=== PATIENT | male | born 1940 | race Caucasian/White ===

== ENCOUNTER 2020-12-27 09:20 | Inpatient (IN) | payer MEDICARE, OTHER ==
[2020-12-27 10:02] LABS: #Eosinphils 0.1 10x3/uL (0.0-0.5); #Monocytes 0.7 10x3/uL (0.0-1.1); #Neutrophils 11.9 10x3/uL (1.5-8.4); %Basophils 0.2 % (0.0-2.0); %Eosinophils 0.6 % (0.0-6.0); %Lymphocytes 5.3 % (18.0-47.0); %Monocytes 4.9 % (0.0-10.0); Hemoglobin 7.7 g/dL (13.5-17.5); Mean Corpuscular HGB CONC 29.8 g/dL (32.0-36.0); Mean Corpuscular Hemoglobin 22.8 pg (27.0-33.0); Mean Corpuscular Volume 76.3 fl (81.2-95.1); Mean Platelet Volume 9.7 fl (7.4-10.4); Platelet Count 324 10x3/uL (150-450); Red Blood Cell (RBC) Count 3.38 10x6/uL (4.32-5.72); White Blood Cell (WBC) Count 13.5 10x3/uL (3.5-10.5)
[2020-12-27 10:13] LABS: ALT (SGPT) 20 U/L (8-55); AST (SGOT) 14 U/L (5-34); Albumin 3.7 g/dL (3.4-4.8); Alkaline Phosphatase 102 U/L (40-110); Anion Gap 17 mmol/L (10-20); BUN (Urea Nitrogen) 39 mg/dL (8.4-25.7); Bilirubin, Total 0.6 mg/dL (0.2-1.2); Calc. Creatinine Clearance 0 mL/min (70-130); Calcium 8.6 mg/dL (7.8-10.44); Carbon Dioxide 21 mmol/L (23-31); Chloride 105 mmol/L (98-107); Glucose 218 mg/dL (83-110); Potassium 4.2 mmol/L (3.5-5.1); Protein, Total 6.7 g/dL (5.8-8.1); Sodium 139 mmol/L (136-145)
[2020-12-27] MEDS ORDERED: Furosemide 40 MG/4 ML VIAL ONE (10:51)
[2020-12-27 11:53] LABS: Hypochromia SLIGHT = 6-15 cells (100X) (0-5/hpf); Ovalocytes SLIGHT = 2-5 cells (100X) (0-1/hpf); Platelet Morphology Comment Appears Adequate
[2020-12-27] MEDS ORDERED: Senokot S 8.6-50 MG TAB PO PRN (16:11)
[2020-12-27] MEDS ORDERED: Acetaminophen 325 MG TAB PO PRN (16:11)
[2020-12-27] MEDS ORDERED: Ondansetron PF 4 MG/2 ML Vial IVP PRN (16:11)
[2020-12-27] MEDS ORDERED: Dextrose 5% in Water 1,000 ML IV PRN (16:23)
[2020-12-27] MEDS ORDERED: HumaLOG 300 UNITS/3 ML VIAL SC PRN (16:23)
[2020-12-27 17:03] LABS: Iron 16 ug/dL (65-175); Iron Binding Capacity, Total 484 mcg/dL (261-462)
[2020-12-27] MEDS ORDERED: Ipratropium Bromide 2.5 ml Neb NEB SCH (18:00)
[2020-12-27] MEDS: Simvastatin 10 MG TAB PO SCH (20:47)
[2020-12-27] MEDS: HumuLIN 70/30 (300 UNITS/3 ML VIAL) SC SCH (20:47)
[2020-12-27] MEDS ORDERED: Apixaban 2.5 MG TAB PO SCH (21:00)
[2020-12-28 01:16] LABS: SARS-CoV-2 PCR by NAA Not Detected (NotDetected)
[2020-12-28] MEDS: Ipratropium Bromide 2.5 ml Neb NEB SCH ×5 (03:10→19:51)
[2020-12-28] MEDS: Levothyroxine Sodium 25 MCG TAB PO SCH (05:02)
[2020-12-28 05:25] LABS: #Eosinphils 0.1 10x3/uL (0.0-0.5); #Monocytes 0.6 10x3/uL (0.0-1.1); #Neutrophils 9.3 10x3/uL (1.5-8.4); %Basophils 0.4 % (0.0-2.0); %Eosinophils 0.9 % (0.0-6.0); %Lymphocytes 6.6 % (18.0-47.0); %Monocytes 5.2 % (0.0-10.0); %Neutrophils 86.3 % (40.0-75.0); Hemoglobin 7.9 g/dL (13.5-17.5); Mean Corpuscular HGB CONC 30.7 g/dL (32.0-36.0); Mean Corpuscular Hemoglobin 23.4 pg (27.0-33.0); Mean Corpuscular Volume 76.3 fl (81.2-95.1); Mean Platelet Volume 9.5 fl (7.4-10.4); Platelet Count 283 10x3/uL (150-450); RBC Distribution Width 18.2 % (11.5-14.5); Red Blood Cell (RBC) Count 3.37 10x6/uL (4.32-5.72); White Blood Cell (WBC) Count 10.8 10x3/uL (3.5-10.5)
[2020-12-28 05:41] LABS: Anion Gap 14 mmol/L (10-20); BUN (Urea Nitrogen) 36 mg/dL (8.4-25.7); Calc. Creatinine Clearance 47 mL/min (70-130); Calcium 8.6 mg/dL (7.8-10.44); Carbon Dioxide 22 mmol/L (23-31); Chloride 106 mmol/L (98-107); Magnesium 1.9 mg/dL (1.6-2.6); Potassium 3.7 mmol/L (3.5-5.1); Sodium 138 mmol/L (136-145)
[2020-12-28 05:53] LABS: Glucose 49 mg/dL (83-110)
[2020-12-28] MEDS: Dextrose 50% Abboject 50 ML SYRINGE SLOW IVP PRN ×2 (05:59→16:39)
[2020-12-28] MEDS ORDERED: Furosemide 40 MG/4 ML VIAL SLOW IVP SCH (06:00)
[2020-12-28] MEDS ORDERED: Glimepiride 4 MG TAB PO SCH (07:30)
[2020-12-28] MEDS: Cholecalciferol 1,000 UNITS (25 MCG) TAB PO SCH (08:46)
[2020-12-28] MEDS: HumuLIN 70/30 (300 UNITS/3 ML VIAL) SC SCH ×2 (08:46→20:10)
[2020-12-28] MEDS: Losartan 25 MG TAB PO SCH (08:46)
[2020-12-28] MEDS ORDERED: Aspirin Chewable 81 MG TAB PO SCH (09:00)
[2020-12-28] MEDS ORDERED: Aspirin 81 mg Enteric Coated Tablet PO SCH (09:00)
[2020-12-28] MEDS: Simvastatin 10 MG TAB PO SCH (20:10)
[2020-12-28] MEDS ORDERED: GoLYTELY 4,000 ml Bottle PO SCH (22:00)
[2020-12-29] MEDS: Ipratropium Bromide 2.5 ml Neb NEB SCH ×3 (02:58→19:15)
[2020-12-29] MEDS: Dextrose 50% Abboject 50 ML SYRINGE SLOW IVP PRN ×2 (03:49→10:13)
[2020-12-29] MEDS: Losartan 25 MG TAB PO SCH (05:10)
[2020-12-29] MEDS: Levothyroxine Sodium 25 MCG TAB PO SCH (05:10)
[2020-12-29] MEDS: Cholecalciferol 1,000 UNITS (25 MCG) TAB PO SCH (05:10)
[2020-12-29] MEDS: HumuLIN 70/30 (300 UNITS/3 ML VIAL) SC SCH ×2 (05:13→20:31)
[2020-12-29] MEDS: Furosemide 40 MG TAB PO SCH (05:13)
[2020-12-29 05:20] LABS: #Eosinphils 0.1 10x3/uL (0.0-0.5); #Monocytes 0.6 10x3/uL (0.0-1.1); #Neutrophils 8.7 10x3/uL (1.5-8.4); %Basophils 0.4 % (0.0-2.0); %Eosinophils 1.3 % (0.0-6.0); %Monocytes 5.8 % (0.0-10.0); %Neutrophils 84.8 % (40.0-75.0); Hemoglobin 8.8 g/dL (13.5-17.5); Mean Corpuscular HGB CONC 30.7 g/dL (32.0-36.0); Mean Corpuscular Hemoglobin 23.7 pg (27.0-33.0); Mean Corpuscular Volume 77.4 fl (81.2-95.1); Mean Platelet Volume 9.3 fl (7.4-10.4); Platelet Count 260 10x3/uL (150-450); RBC Distribution Width 18.2 % (11.5-14.5); Red Blood Cell (RBC) Count 3.71 10x6/uL (4.32-5.72); White Blood Cell (WBC) Count 10.3 10x3/uL (3.5-10.5)
[2020-12-29 05:33] LABS: Anion Gap 13 mmol/L (10-20); BUN (Urea Nitrogen) 28 mg/dL (8.4-25.7); Calc. Creatinine Clearance 43 mL/min (70-130); Calcium 8.8 mg/dL (7.8-10.44); Carbon Dioxide 28 mmol/L (23-31); Chloride 102 mmol/L (98-107); Glucose 115 mg/dL (83-110); Potassium 3.9 mmol/L (3.5-5.1); Sodium 139 mmol/L (136-145); Troponin I Less than 0.010 ng/mL (< 0.028)
[2020-12-29 07:07] VITALS: BMI 32.2
[2020-12-29] MEDS ORDERED: Dextrose 50% Abboject 50 ML SYRINGE ONE (10:10)
[2020-12-29] MEDS ORDERED: PROPOFOL 40 ML ONE (12:57)
[2020-12-29] MEDS ORDERED: Midazolam HCl 2 mg/2 ml Vial ONE (12:57)
[2020-12-29] MEDS ORDERED: PHENYLEPHRINE-NS 100 MCG/ML 10 ML SYRINGE ONE (13:19)
[2020-12-29] MEDS ORDERED: ePHEDrine 50 MG/ML VIAL ONE (13:29)
[2020-12-29] MEDS ORDERED: Glycopyrrolate 0.2 MG/ML 5 ML SYRINGE ONE (13:49)
[2020-12-29] MEDS: Simvastatin 10 MG TAB PO SCH (20:30)
[2020-12-30] MEDS: Ipratropium Bromide 2.5 ml Neb NEB SCH ×4 (01:45→20:21)
[2020-12-30 04:54] LABS: Anion Gap 13 mmol/L (10-20); BUN (Urea Nitrogen) 20 mg/dL (8.4-25.7); Calc. Creatinine Clearance 48 mL/min (70-130); Calcium 9.3 mg/dL (7.8-10.44); Carbon Dioxide 28 mmol/L (23-31); Chloride 103 mmol/L (98-107); Glucose 67 mg/dL (83-110); Potassium 4.4 mmol/L (3.5-5.1); Sodium 140 mmol/L (136-145)
[2020-12-30] MEDS: Levothyroxine Sodium 25 MCG TAB PO SCH (05:57)
[2020-12-30] MEDS: Furosemide 40 MG TAB PO SCH (08:15)
[2020-12-30] MEDS: Aspirin 81 mg Enteric Coated Tablet PO SCH (08:15)
[2020-12-30] MEDS: Losartan 25 MG TAB PO SCH (08:15)
[2020-12-30] MEDS: HumuLIN 70/30 (300 UNITS/3 ML VIAL) SC SCH ×2 (08:15→20:58)
[2020-12-30] MEDS: Cholecalciferol 1,000 UNITS (25 MCG) TAB PO SCH (08:15)
[2020-12-30 08:39] LABS: Anion Gap 12 mmol/L (10-20); BUN (Urea Nitrogen) 20 mg/dL (8.4-25.7); Calc. Creatinine Clearance 49 mL/min (70-130); Calcium 8.9 mg/dL (7.8-10.44); Carbon Dioxide 27 mmol/L (23-31); Chloride 104 mmol/L (98-107); Glucose 90 mg/dL (83-110); Potassium 4.3 mmol/L (3.5-5.1); Sodium 139 mmol/L (136-145)
[2020-12-30 09:10] LABS: #Eosinphils 0.2 10x3/uL (0.0-0.5); #Monocytes 0.5 10x3/uL (0.0-1.1); #Neutrophils 6.8 10x3/uL (1.5-8.4); %Basophils 0.3 % (0.0-2.0); %Eosinophils 2.8 % (0.0-6.0); %Lymphocytes 11.7 % (18.0-47.0); %Monocytes 5.9 % (0.0-10.0); Hemoglobin 8.5 g/dL (13.5-17.5); Mean Corpuscular Hemoglobin 23.9 pg (27.0-33.0); Mean Corpuscular Volume 79.5 fl (81.2-95.1); Mean Platelet Volume 9.3 fl (7.4-10.4); Platelet Count 247 10x3/uL (150-450); RBC Distribution Width 18.7 % (11.5-14.5); Red Blood Cell (RBC) Count 3.56 10x6/uL (4.32-5.72); White Blood Cell (WBC) Count 8.6 10x3/uL (3.5-10.5)
[2020-12-30] MEDS: Simvastatin 10 MG TAB PO SCH (20:59)
[2020-12-31] MEDS: Ipratropium Bromide 2.5 ml Neb NEB SCH ×2 (01:34→07:46)
[2020-12-31] MEDS: Levothyroxine Sodium 25 MCG TAB PO SCH (05:37)
[2020-12-31 05:56] LABS: Anion Gap 13 mmol/L (10-20); BUN (Urea Nitrogen) 23 mg/dL (8.4-25.7); Calc. Creatinine Clearance 43 mL/min (70-130); Calcium 8.6 mg/dL (7.8-10.44); Carbon Dioxide 26 mmol/L (23-31); Chloride 104 mmol/L (98-107); Glucose 117 mg/dL (83-110); Potassium 3.9 mmol/L (3.5-5.1); Sodium 139 mmol/L (136-145)
[2020-12-31 08:26] VITALS: BP 123/76; TEMP 97.7
[2020-12-31] MEDS: Cholecalciferol 1,000 UNITS (25 MCG) TAB PO SCH (09:06)
[2020-12-31] MEDS: Aspirin 81 mg Enteric Coated Tablet PO SCH (09:06)
[2020-12-31] MEDS: Furosemide 40 MG TAB PO SCH (09:06)
[2020-12-31] MEDS: Losartan 25 MG TAB PO SCH (09:07)
[2020-12-31] MEDS: HumuLIN 70/30 (300 UNITS/3 ML VIAL) SC SCH (11:41)
== END 2020-12-31 11:41 | disposition home or self-care (01) | DRG 813 ==
LOC: CSHERS 09:20 → CSHTELE 13:31
PROVIDERS: ADMIT Internal Medicine; ATTEND Physician Assistant
PROC: 30233N1 Transfusion of Nonautologous Red Blood Cells into Peripheral Vein, Percutaneous Approach (ICD-10-PCS; principal; 2020-12-27)
PROC: 0DB98ZZ Excision of Duodenum, Via Natural or Artificial Opening Endoscopic (ICD-10-PCS; 2020-12-29)
PROC: 0DB68ZZ Excision of Stomach, Via Natural or Artificial Opening Endoscopic (ICD-10-PCS; 2020-12-29)
PROC: 0DBK8ZZ Excision of Ascending Colon, Via Natural or Artificial Opening Endoscopic (ICD-10-PCS; 2020-12-29)
PROC: 0DBL8ZZ Excision of Transverse Colon, Via Natural or Artificial Opening Endoscopic (ICD-10-PCS; 2020-12-29)
PROC: 0DBN8ZZ Excision of Sigmoid Colon, Via Natural or Artificial Opening Endoscopic (ICD-10-PCS; 2020-12-29)
PROC: 0DBM8ZZ Excision of Descending Colon, Via Natural or Artificial Opening Endoscopic (ICD-10-PCS; 2020-12-29)
PROC: 0DBH8ZZ Excision of Cecum, Via Natural or Artificial Opening Endoscopic (ICD-10-PCS; 2020-12-29)
PROC: 0W3P8ZZ Control Bleeding in Gastrointestinal Tract, Via Natural or Artificial Opening Endoscopic (ICD-10-PCS; 2020-12-29)
DX: D68.32 Hemorrhagic disorder due to extrinsic circulating anticoagulants (principal); I50.31 Acute diastolic (congestive) heart failure; I13.0 Hypertensive heart and chronic kidney disease with heart failure and stage 1 through stage 4 chronic kidney disease, or unspecified chronic kidney disease; I48.19 Other persistent atrial fibrillation; K92.2 Gastrointestinal hemorrhage, unspecified; D50.9 Iron deficiency anemia, unspecified; Z20.822 Contact with and (suspected) exposure to COVID-19; N18.30 Chronic kidney disease, stage 3 unspecified; E11.22 Type 2 diabetes mellitus with diabetic chronic kidney disease; K21.9 Gastro-esophageal reflux disease without esophagitis; J44.9 Chronic obstructive pulmonary disease, unspecified; I25.10 Atherosclerotic heart disease of native coronary artery without angina pectoris; E11.51 Type 2 diabetes mellitus with diabetic peripheral angiopathy without gangrene; I65.22 Occlusion and stenosis of left carotid artery; E55.9 Vitamin D deficiency, unspecified; K64.4 Residual hemorrhoidal skin tags; K57.30 Diverticulosis of large intestine without perforation or abscess without bleeding; K64.8 Other hemorrhoids; T45.515A Adverse effect of anticoagulants, initial encounter; K63.5 Polyp of colon; E11.649 Type 2 diabetes mellitus with hypoglycemia without coma; T38.3X5A Adverse effect of insulin and oral hypoglycemic [antidiabetic] drugs, initial encounter; Y92.230 Patient room in hospital as the place of occurrence of the external cause; G31.84 Mild cognitive impairment of uncertain or unknown etiology; E03.9 Hypothyroidism, unspecified; Z79.01 Long term (current) use of anticoagulants; Z79.82 Long term (current) use of aspirin; Z95.5 Presence of coronary angioplasty implant and graft; Z87.891 Personal history of nicotine dependence; Z79.890 Hormone replacement therapy; Z79.4 Long term (current) use of insulin; Z79.899 Other long term (current) drug therapy
CPT/HCPCS: 36415; 36416; 36430; 71045; 80048; 80053; 82274; 83540; 83550; 83735; 83880; 84443; 84484; 85025; 86850; 86900; 86901; 87635; 88305; 93005; 93010; 93306; 94640; 96374; J1815; J1940; J2250; J2704; J3490; J7620; P9016; U0003; U0005

== ENCOUNTER 2022-05-11 10:30 | Inpatient (IN) | payer MEDICARE ==
[2022-05-11] MEDS ORDERED: Furosemide 40 MG/4 ML VIAL ONE (11:21)
[2022-05-11 11:27] LABS: #Basophils 0.1 10x3/uL (0.0-0.2); #Eosinphils 0.2 10x3/uL (0.0-0.5); #Monocytes 0.6 10x3/uL (0.0-1.1); #Neutrophils 4.6 10x3/uL (1.5-8.4); %Eosinophils 3.2 % (0.0-6.0); %Lymphocytes 23.9 % (18.0-47.0); %Monocytes 8.4 % (0.0-10.0); %Neutrophils 63.1 % (40.0-75.0); Hemoglobin 10.6 g/dL (13.5-17.5); Mean Corpuscular HGB CONC 30.9 g/dL (32.0-36.0); Mean Corpuscular Hemoglobin 25.4 pg (27.0-33.0); Mean Corpuscular Volume 82.3 fl (81.2-95.1); Mean Platelet Volume 9.8 fl (7.4-10.4); Platelet Count 301 10x3/uL (150-450); RBC Distribution Width 16.5 % (11.5-14.5); Red Blood Cell (RBC) Count 4.17 10x6/uL (4.32-5.72); White Blood Cell (WBC) Count 7.2 10x3/uL (3.5-10.5)
[2022-05-11 11:30] LABS: INR-International Normal Ratio 1.1; PTT 33.8 sec (22.0-33.0); Prothrombin Time 11.9 sec (9.5-12.1)
[2022-05-11 11:42] LABS: ALT (SGPT) 10 U/L (8-55); AST (SGOT) 22 U/L (5-34); Alkaline Phosphatase 127 U/L (40-110); Anion Gap 14 mmol/L (10-20); BUN (Urea Nitrogen) 21 mg/dL (8.4-25.7); Bilirubin, Total 1.1 mg/dL (0.2-1.2); Calc. Creatinine Clearance 0 mL/min (70-130); Calcium 8.9 mg/dL (7.8-10.44); Carbon Dioxide 23 mmol/L (23-31); Chloride 111 mmol/L (98-107); Estimated GFR 49; Globulin 3.4 g/dL (2.4-3.5); Glucose 124 mg/dL (83-110); Potassium 4.4 mmol/L (3.5-5.1); Protein, Total 7.4 g/dL (5.8-8.1); Sodium 144 mmol/L (136-145)
[2022-05-11] MEDS ORDERED: methylPREDNISolone Sod Succ/PF 125 MG/2 ML VIAL ONE (13:04)
[2022-05-11] MEDS ORDERED: Furosemide 20 MG/2 ML VIAL SLOW IVP SCH (16:45)
[2022-05-11] MEDS ORDERED: Acetaminophen 325 MG TAB PO PRN (16:45)
[2022-05-11] MEDS ORDERED: Ondansetron ODT 4 MG TAB PO PRN (16:45)
[2022-05-11] MEDS ORDERED: Dextrose 5% in Water 1,000 ML IV PRN (16:48)
[2022-05-11] MEDS ORDERED: HumaLOG 300 UNITS/3 ML VIAL SC PRN (16:48)
[2022-05-11] MEDS ORDERED: Dextrose 50% Abboject 50 ML SYRINGE SLOW IVP PRN (16:48)
[2022-05-11 17:19] VITALS: BMI 31.2
[2022-05-11 21:14] LABS: SARS-CoV-2 NAA Rapid Test Not Detected (NotDetected)
[2022-05-11] MEDS: methylPREDNISolone Sod Succ 40 MG VIAL IVP SCH (23:09)
[2022-05-12 01:40] LABS: Bilirubin Neg (Negative); Blood, Urine 25 (Negative); Clarity Clear (Clear); Glucose, Urine (Dipstick) 100 mg/dL (Negative); Ketone, Urine Negative (Negative); Leukocyte Negative (Negative); Nitrite Negative (Negative); Protein, Urine (Dipstick) Negative (Neg-Trace); Urobilinogen Normal mg/dL (Less than 2)
[2022-05-12 01:41] LABS: Urine Culture Reflex No No
[2022-05-12 01:44] LABS: Bacteria/HPF None Seen HPF (None Seen); RBC/HPF 0-3 HPF (0-3); Squamous Epithelial 0-3 HPF (0-3); WBC/HPF None Seen HPF (0-3)
[2022-05-12] MEDS: methylPREDNISolone Sod Succ 40 MG VIAL IVP SCH (05:23)
[2022-05-12 05:28] LABS: Anion Gap 19 mmol/L (10-20); BUN (Urea Nitrogen) 29 mg/dL (8.4-25.7); Calc. Creatinine Clearance 34 mL/min (70-130); Carbon Dioxide 22 mmol/L (23-31); Chloride 105 mmol/L (98-107); Estimated GFR 33; Glucose 265 mg/dL (83-110); Potassium 4.1 mmol/L (3.5-5.1); Sodium 142 mmol/L (136-145)
[2022-05-12 05:30] LABS: #Monocytes 0.2 10x3/uL (0.0-1.1); #Neutrophils 6.5 10x3/uL (1.5-8.4); %Basophils 0.1 % (0.0-2.0); %Lymphocytes 3.3 % (18.0-47.0); %Monocytes 2.4 % (0.0-10.0); %Neutrophils 93.6 % (40.0-75.0); Mean Corpuscular HGB CONC 30.7 g/dL (32.0-36.0); Mean Corpuscular Hemoglobin 24.7 pg (27.0-33.0); Mean Corpuscular Volume 80.5 fl (81.2-95.1); Mean Platelet Volume 9.8 fl (7.4-10.4); Platelet Count 287 10x3/uL (150-450); RBC Distribution Width 16.5 % (11.5-14.5); Red Blood Cell (RBC) Count 4.05 10x6/uL (4.32-5.72)
[2022-05-12] MEDS ORDERED: Furosemide 40 MG/4 ML VIAL SLOW IVP SCH (06:00)
[2022-05-12] MEDS: HumaLOG 300 UNITS/3 ML VIAL SC PRN ×3 (06:53→13:45)
[2022-05-12] MEDS ORDERED: Mometasone/Formoterol 200/5 60 PUFF INH SCH (08:45)
[2022-05-12] MEDS ORDERED: Non-Formulary Medication 1 EACH (Omeprazole [Omeprazole] 20 MG Capsule.Dr) PO SCH (09:00)
[2022-05-12] MEDS ORDERED: Enoxaparin Sodium 40 MG/0.4 ML SYRINGE SC SCH (09:00)
[2022-05-12] MEDS: Levothyroxine Sodium 25 MCG TAB PO SCH (09:09)
[2022-05-12] MEDS: Aspirin 81 mg Enteric Coated Tablet PO SCH (09:10)
[2022-05-12] MEDS: Glimepiride 4 MG TAB PO SCH ×2 (09:10→20:14)
[2022-05-12] MEDS: HumuLIN 70/30 (300 UNITS/3 ML VIAL) SC SCH ×2 (09:15→20:14)
[2022-05-12] MEDS ORDERED: Ipratropium Bromide 2.5 ml Neb NEB SCH (13:00)
[2022-05-12 15:06] LABS: Hemoglobin A1c 7.2 % (4.0-6.0)
[2022-05-12] MEDS: Mometasone/Formoterol 200/5 60 PUFF INH SCH (19:25)
[2022-05-12] MEDS: Simvastatin 10 MG TAB PO SCH (20:14)
[2022-05-13 05:10] LABS: #Monocytes 1.2 10x3/uL (0.0-1.1); #Neutrophils 14.1 10x3/uL (1.5-8.4); %Basophils 0.1 % (0.0-2.0); %Monocytes 7.6 % (0.0-10.0); %Neutrophils 87.4 % (40.0-75.0); Hemoglobin 9.6 g/dL (13.5-17.5); Mean Corpuscular HGB CONC 30.3 g/dL (32.0-36.0); Mean Corpuscular Hemoglobin 24.7 pg (27.0-33.0); Mean Corpuscular Volume 81.7 fl (81.2-95.1); Mean Platelet Volume 9.9 fl (7.4-10.4); Platelet Count 337 10x3/uL (150-450); RBC Distribution Width 16.6 % (11.5-14.5); Red Blood Cell (RBC) Count 3.88 10x6/uL (4.32-5.72); White Blood Cell (WBC) Count 16.1 10x3/uL (3.5-10.5)
[2022-05-13 05:23] LABS: ALT (SGPT) 9 U/L (8-55); AST (SGOT) 16 U/L (5-34); Albumin 3.7 g/dL (3.4-4.8); Alkaline Phosphatase 93 U/L (40-110); Anion Gap 16 mmol/L (10-20); BUN (Urea Nitrogen) 45 mg/dL (8.4-25.7); Bilirubin, Direct 0.5 mg/dL (0.1-0.3); Bilirubin, Total 0.8 mg/dL (0.2-1.2); Calc. Creatinine Clearance 36 mL/min (70-130); Calcium 8.9 mg/dL (7.8-10.44); Carbon Dioxide 26 mmol/L (23-31); Chloride 105 mmol/L (98-107); Estimated GFR 35; Glucose 60 mg/dL (83-110); Magnesium 1.7 mg/dL (1.6-2.6); Potassium 3.8 mmol/L (3.5-5.1); Sodium 143 mmol/L (136-145)
[2022-05-13 05:55] LABS: Cardiac Risk 4.9 (Less than 4.5); Cholesterol 97 mg/dl (< 200 Desired); HDL Cholesterol 20 mg/dL (>60 Neg Risk); LDL Cholesterol, Calculated 64 mg/dL; Triglycerides 64 mg/dL (Less than 150)
[2022-05-13] MEDS ORDERED: Magnesium 2 GM/50 ML(in water) 2 GM in Premix Bag 1 BAG IVPB SCH (06:30)
[2022-05-13] MEDS: Mometasone/Formoterol 200/5 60 PUFF INH SCH ×2 (06:55→19:55)
[2022-05-13] MEDS: Levothyroxine Sodium 25 MCG TAB PO SCH (08:16)
[2022-05-13] MEDS: Aspirin 81 mg Enteric Coated Tablet PO SCH (08:16)
[2022-05-13] MEDS: Furosemide 40 MG TAB PO SCH (08:17)
[2022-05-13] MEDS: predniSONE 50 MG TAB PO SCH (08:25)
[2022-05-13] MEDS ORDERED: Enoxaparin Sodium 30 MG/0.3 ML SYRINGE SC SCH (09:00)
[2022-05-13] MEDS: Simvastatin 10 MG TAB PO SCH (22:42)
[2022-05-14 05:06] LABS: #Monocytes 0.8 10x3/uL (0.0-1.1); #Neutrophils 9.7 10x3/uL (1.5-8.4); %Basophils 0.1 % (0.0-2.0); %Lymphocytes 4.5 % (18.0-47.0); %Monocytes 7.6 % (0.0-10.0); %Neutrophils 87.1 % (40.0-75.0); Hemoglobin 9.8 g/dL (13.5-17.5); Mean Corpuscular Hemoglobin 25.1 pg (27.0-33.0); Mean Platelet Volume 10.3 fl (7.4-10.4); Platelet Count 302 10x3/uL (150-450); RBC Distribution Width 16.6 % (11.5-14.5); White Blood Cell (WBC) Count 11.1 10x3/uL (3.5-10.5)
[2022-05-14 05:27] LABS: Anion Gap 16 mmol/L (10-20); BUN (Urea Nitrogen) 45 mg/dL (8.4-25.7); Calc. Creatinine Clearance 38 mL/min (70-130); Calcium 8.8 mg/dL (7.8-10.44); Carbon Dioxide 26 mmol/L (23-31); Chloride 103 mmol/L (98-107); Estimated GFR 37; Glucose 201 mg/dL (83-110); Magnesium 2.2 mg/dL (1.6-2.6); Sodium 141 mmol/L (136-145)
[2022-05-14] MEDS ORDERED: Levothyroxine Sodium 25 MCG TAB PO SCH (06:00)
[2022-05-14] MEDS: Mometasone/Formoterol 200/5 60 PUFF INH SCH (07:17)
[2022-05-14] MEDS ORDERED: Polyvinyl Alcohol 1.4%/Povidone 0.6% Opth Drops EA EYE PRN (08:15)
[2022-05-14] MEDS ORDERED: Enoxaparin Sodium 40 MG/0.4 ML SYRINGE SC SCH (09:00)
[2022-05-14] MEDS ORDERED: Glimepiride 4 MG TAB PO SCH (09:00)
[2022-05-14] MEDS: Furosemide 40 MG TAB PO SCH (09:27)
[2022-05-14] MEDS: Aspirin 81 mg Enteric Coated Tablet PO SCH (09:27)
[2022-05-14] MEDS: predniSONE 50 MG TAB PO SCH (09:28)
[2022-05-14 11:53] VITALS: TEMP 98
[2022-05-14 12:53] VITALS: BP 126/78
== END 2022-05-14 17:01 | disposition swing bed (61) | DRG 291 ==
LOC: CSHERS 10:30 → INTOOBSV 15:45 → CSHTELE 15:45 → OBSVTOIN 05-13 11:20
PROVIDERS: ADMIT Family Medicine; ATTEND Family Medicine
DX: I13.0 Hypertensive heart and chronic kidney disease with heart failure and stage 1 through stage 4 chronic kidney disease, or unspecified chronic kidney disease (principal); I50.33 Acute on chronic diastolic (congestive) heart failure; I48.19 Other persistent atrial fibrillation; J44.1 Chronic obstructive pulmonary disease with (acute) exacerbation; N17.9 Acute kidney failure, unspecified; E03.9 Hypothyroidism, unspecified; N18.30 Chronic kidney disease, stage 3 unspecified; E11.22 Type 2 diabetes mellitus with diabetic chronic kidney disease; D63.1 Anemia in chronic kidney disease; Z98.890 Other specified postprocedural states; Z79.82 Long term (current) use of aspirin; Z79.4 Long term (current) use of insulin; Z95.5 Presence of coronary angioplasty implant and graft; Z79.899 Other long term (current) drug therapy
CPT/HCPCS: 36415; 36416; 70450; 71045; 76700; 80048; 80053; 80061; 80076; 81001; 83036; 83735; 83880; 84443; 84484; 85025; 85610; 85730; 93005; 93306; 93970; 94640; 94664; 94760; 96372; 96374; 96375; 96376; 97139; G0378; J1650; J1815; J1940; J2920; J2930; J3475; J7512; J7620